=== PATIENT | male | born 1945 | race Caucasian/White ===

== ENCOUNTER 2017-11-25 11:38 | Emergency (ER) | payer MEDICARE, SELFPAY ==
[2017-11-25] VITALS (7 sets, daily range): BP systolic 97–156; BP diastolic 56–101; PULSE 54–69; RESP 16–18; TEMP 36.8; O2SAT 92–97; BMI 31.4
--- NOTE | 2017-11-25 | RAD_ITS ---
STUDY: X-RAY CHEST REASON FOR EXAM: Male, 72 years old. Chest pain and shortness of breath. TECHNIQUE: Single AP portable view of the chest. COMPARISON: Comparison is made with prior study dated August 19, 2015. FINDINGS: EKG electrodes are seen. Mild degree of vascular congestion and CHF. There is no demonstrated pleural abnormality. Sternal cerclage wires are present from a prior sternotomy. Atrial clip. Cardiomegaly. Normal mediastinum and ashley. Normal visualized pulmonary arteries. There is atherosclerotic calcification of the aortic arch with tortuosity. Normal visualized thoracic spine. Normal visualized ribs, clavicles, and shoulders. There is no demonstrated abnormality of the visualized soft tissue structures of the upper abdomen. RAD/Chest 1 View (Portable) IMPRESSION: Findings suggest a mild degree of CHF. Electronically Signed: Micah Rangel MD at 12:53 EDT Tel [phone], Service support ,
--- NOTE | 2017-11-25 12:20 | EKG12_ITS ---
Test Reason : SYNCOPE Blood Pressure : / mmHG Vent. Rate : 064 BPM Atrial Rate : 056 BPM P-R Int : 200 ms QRS Dur : 158 ms QT Int : 520 ms P-R-T Axes : 035 266 264 degrees QTc Int : 536 ms Sinus bradycardia with marked sinus arrhythmia Right bundle branch block Inferior infarct , age undetermined Abnormal ECG Confirmed by JULIANE BUSCH, LIV ([id number]), offline editor AR LANGLEY ([id number]) on 11/27/2017 1:41:55 PM Referred By: ANCA Confirmed By:LIV CARDOZO MD
--- NOTE | 2017-11-25 12:22 | EKG12_ITS ---
Test Reason : Blood Pressure : / mmHG Vent. Rate : 065 BPM Atrial Rate : 088 BPM P-R Int : 000 ms QRS Dur : 146 ms QT Int : 516 ms P-R-T Axes : 000 -82 137 degrees QTc Int : 536 ms Atrial fibrillation Left axis deviation Right bundle branch block Abnormal ECG Confirmed by JULIANE BUSCH, LIV ([id number]), writer editor AR LANGLEY ([id number]) on 11/27/2017 1:41:23 PM Referred By: JUANA Confirmed By:LIV CARDOZO MD
--- NOTE | 2017-11-25 12:23 | ED.VISSUMM ---
- ER Visit Summary Date of Service: 11/25/17 Chief Complaint: Shortness of breath History of Present Illness: The patient is a 72 M who presents for evaluation of shortness of breath that started this morning. Patient states he went to his daughter's house, and upon walking up the stairs to her house he became short of breath. He had another episode of shortness of breath while having a bowel movement and having to bear down. He became lightheaded and diaphoretic, but states he felt lightheaded and short of breath prior to having the bowel movement. He denies chest pain, fever, abdominal pain, nausea or vomiting, back pain. He has a history of quadruple bypass surgery, a valve repair, and he is scheduled to be evaluated at the [facility] tomorrow for evaluation of another leaky valve that will likely require surgery. Daughter states that patient has been having intermittent shortness of breath for a few months. He stopped his Xarelto and Metformin yesterday in anticipation of a cardiac catheterization this week. Patient is a former smoker. Denies any history of COPD, asthma, CHF. Physical Examination: Vital signs: afebrile, hemodynamically stable, 88-91% on room air, hypoxia on room air General: well nourished, well developed, in no distress Skin: warm, dry, no rash, no pallor HEENT: normocephalic and atraumatic; PERRL, EOMI, moist mucous membranes Cardiovascular: regular rate and rhythm with harsh systolic murmur best heard at the left sternal border, no peripheral edema, 2+ pulses all distal extremities Respiratory: No increased work of breathing, lungs are clear to auscultation bilaterally, no rales, rhonchi or wheezing Abdominal: Abdomen is soft, nontender with normoactive bowel sounds, no guarding or rebound, no masses MSK: Moves all extremities, no deformities, normal strength Neuro: Awake and alert, oriented ?4. No facial droop, sensation and motor function intact and symmetric Test Results: Abnormal Lab Results 11/25/17 11/25/17 11/25/17 12:50 12:50 12:50 WBC 18.7 H RBC 4.43 L Hgb 12.3 L Hct 39.3 L MCV 88.7 MCH 27.8 MCHC 31.3 L RDW 16.1 H RDW Differential 52.0 H Plt Count 214 MPV 9.7 Immature Gran % (Auto) 0.100 Neut % (Auto) 31.5 L Lymph % (Auto) 64.5 H [place] % (Auto) 3.2 Eos % (Auto) 0.5 Baso % (Auto) 0.2 Absolute Neuts (auto) 5.9 Absolute Lymphs (auto) 12.07 H Total Counted Not Reportable Diff Path Review May foll Smudge Cells 1+ H PT 16.0 H INR 1.3 APTT 39.5 H D-Dimer Quant (PE/DVT) 0.47 Sodium 141 Potassium 4.1 Chloride 107 Carbon Dioxide 28.0 Anion Gap 6 BUN 13 Creatinine 1.07 Estim Creat Clear Calc 65.38 Est GFR (MDRD) Af Amer 88 Est GFR (MDRD) Non-Af 72 BUN/Creatinine Ratio 12.1 Glucose 114 H Calcium 8.7 Troponin I 0.017 B-Natriuretic Peptide 11/25/17 12:50 WBC RBC Hgb Hct MCV MCH MCHC RDW RDW Differential Plt Count MPV Immature Gran % (Auto) Neut % (Auto) Lymph % (Auto) [place] % (Auto) Eos % (Auto) Baso % (Auto) Absolute Neuts (auto) Absolute Lymphs (auto) Total Counted Diff Path Review Smudge Cells PT INR APTT D-Dimer Quant (PE/DVT) Sodium Potassium Chloride Carbon Dioxide Anion Gap BUN Creatinine Estim Creat Clear Calc Est GFR (MDRD) Af Amer Est GFR (MDRD) Non-Af BUN/Creatinine Ratio Glucose Calcium Troponin I B-Natriuretic Peptide 381.1 H Clinical Impression(s) from Imaging Studies Chest X-Ray 11/25/17 00:00 IMPRESSION: Findings suggest a mild degree of CHF. Electronically Signed: Micah Rangel MD at 12:53 EDT Tel [phone], Service support , Emergency Department Course and Treatment: Patient presents with new onset shortness of breath, with upcoming surgical repair of leaky valve. Family unsure exactly which valve it was. Patient does have a harsh systolic murmur on evaluation. Patient hypoxic at presentation that improved with 2 L nasal cannula, with no history of oxygen requirement. Patient also recently stopped his Xarelto in anticipation of the procedures this week. Thus PE is on the differential. D-dimer was normal. Patient's EKG showed a sinus bradycardia with a right bundle branch block, ST depressions in the anterolateral leads, present on old EKG. Posterior EKG performed given the ST depressions in the anterolateral leads and showed no ST patient in the posterior leads. Troponin negative. Patient had a leukocytosis of 18.7, which upon further discussion the family states is chronic for the patient, as he has a history of leukemia and always has an elevation of his white count. Chest x-ray was consistent with CHF. BNP was elevated. Patient's symptoms were controlled with nasal cannula oxygen. Patient was not given any nitro or Lasix, as his valvular defect may depend upon adequate preload. Patient was discussed with [facility] cardiology, Dr. Saxena, juvenile court liaison for Dr. Gonzalez, regarding transfer of patient to the [facility] for further intervention, as his presentation today may be related to his underlying valvular disease. Patient was accepted for transfer for continuity of care and specialist management. Treatment Plan: [] Disposition: [] Impression: Acute CHF exacerbation, hypoxia, valvular disease This note was generated with Ro[employer] dictation software. It may contain incorrect words, spelling, and punctuation that were not noted in review of the chart prior to signing ED Disposition - Plan for ED Patient: Chief Complaint: Shortness of Breath Referrals: Momo Hutton MD [Primary Care Provider] -
--- NOTE | 2017-11-25 12:26 | ED.DCSUM_ITS ---
- ER Visit Summary Date of Service: 11/25/17 Chief Complaint: Shortness of breath History of Present Illness: The patient is a 72 M who presents for evaluation of shortness of breath that started this morning. Patient states he went to his daughter's house, and upon walking up the stairs to her house he became short of breath. He had another episode of shortness of breath while having a bowel movement and having to bear down. He became lightheaded and diaphoretic, but states he felt lightheaded and short of breath prior to having the bowel movement. He denies chest pain, fever, abdominal pain, nausea or vomiting, back pain. He has a history of quadruple bypass surgery, a valve repair, and he is scheduled to be evaluated at the [facility] tomorrow for evaluation of another leaky valve that will likely require surgery. Daughter states that patient has been having intermittent shortness of breath for a few months. He stopped his Xarelto and Metformin yesterday in anticipation of a cardiac catheterization this week. Patient is a former smoker. Denies any history of COPD, asthma, CHF. Physical Examination: Vital signs: afebrile, hemodynamically stable, 88-91% on room air, hypoxia on room air General: well nourished, well developed, in no distress Skin: warm, dry, no rash, no pallor HEENT: normocephalic and atraumatic; PERRL, EOMI, moist mucous membranes Cardiovascular: regular rate and rhythm with harsh systolic murmur best heard at the left sternal border, no peripheral edema, 2+ pulses all distal extremities Respiratory: No increased work of breathing, lungs are clear to auscultation bilaterally, no rales, rhonchi or wheezing Abdominal: Abdomen is soft, nontender with normoactive bowel sounds, no guarding or rebound, no masses MSK: Moves all extremities, no deformities, normal strength Neuro: Awake and alert, oriented ?4. No facial droop, sensation and motor function intact and symmetric Test Results: Abnormal Lab Results 11/25/17 11/25/17 11/25/17 12:50 12:50 12:50 WBC 18.7 H RBC 4.43 L Hgb 12.3 L Hct 39.3 L MCV 88.7 MCH 27.8 MCHC 31.3 L RDW 16.1 H RDW Differential 52.0 H Plt Count 214 MPV 9.7 Immature Gran % (Auto) 0.100 Neut % (Auto) 31.5 L Lymph % (Auto) 64.5 H [place] % (Auto) 3.2 Eos % (Auto) 0.5 Baso % (Auto) 0.2 Absolute Neuts (auto) 5.9 Absolute Lymphs (auto) 12.07 H Total Counted Not Reportable Diff Path Review May foll Smudge Cells 1+ H PT 16.0 H INR 1.3 APTT 39.5 H D-Dimer Quant (PE/DVT) 0.47 Sodium 141 Potassium 4.1 Chloride 107 Carbon Dioxide 28.0 Anion Gap 6 BUN 13 Creatinine 1.07 Estim Creat Clear Calc 65.38 Est GFR (MDRD) Af Amer 88 Est GFR (MDRD) Non-Af 72 BUN/Creatinine Ratio 12.1 Glucose 114 H Calcium 8.7 Troponin I 0.017 B-Natriuretic Peptide 11/25/17 12:50 WBC RBC Hgb Hct MCV MCH MCHC RDW RDW Differential Plt Count MPV Immature Gran % (Auto) Neut % (Auto) Lymph % (Auto) [place] % (Auto) Eos % (Auto) Baso % (Auto) Absolute Neuts (auto) Absolute Lymphs (auto) Total Counted Diff Path Review Smudge Cells PT INR APTT D-Dimer Quant (PE/DVT) Sodium Potassium Chloride Carbon Dioxide Anion Gap BUN Creatinine Estim Creat Clear Calc Est GFR (MDRD) Af Amer Est GFR (MDRD) Non-Af BUN/Creatinine Ratio Glucose Calcium Troponin I B-Natriuretic Peptide 381.1 H Clinical Impression(s) from Imaging Studies Chest X-Ray 11/25/17 00:00 IMPRESSION: Findings suggest a mild degree of CHF. Electronically Signed: Micah Rangel MD at 12:53 EDT Tel [phone], Service support , Emergency Department Course and Treatment: Patient presents with new onset shortness of breath, with upcoming surgical repair of leaky valve. Family unsure exactly which valve it was. Patient does have a harsh systolic murmur on evaluation. Patient hypoxic at presentation that improved with 2 L nasal cannula, with no history of oxygen requirement. Patient also recently stopped his Xarelto in anticipation of the procedures this week. Thus PE is on the differential. D-dimer was normal. Patient's EKG showed a sinus bradycardia with a right bundle branch block, ST depressions in the anterolateral leads, present on old EKG. Posterior EKG performed given the ST depressions in the anterolateral leads and showed no ST patient in the posterior leads. Troponin negative. Patient had a leukocytosis of 18.7, which upon further discussion the family states is chronic for the patient, as he has a history of leukemia and always has an elevation of his white count. Chest x-ray was consistent with CHF. BNP was elevated. Patient's symptoms were controlled with nasal cannula oxygen. Patient was not given any nitro or Lasix, as his valvular defect may depend upon adequate preload. Patient was discussed with [facility] cardiology, Dr. Saxena, sponge hooker for Dr. Gonzalez, regarding transfer of patient to the [facility] for further intervention, as his presentation today may be related to his underlying valvular disease. Patient was accepted for transfer for continuity of care and specialist management. Treatment Plan: [] Disposition: [] Impression: Acute CHF exacerbation, hypoxia, valvular disease This note was generated with [employer] dictation software. It may contain incorrect words, spelling, and punctuation that were not noted in review of the chart prior to signing ED Disposition - Plan for ED Patient: Chief Complaint: Shortness of Breath Referrals: Momo Hutton MD [Primary Care Provider] -
[2017-11-25] MEDS: Aspirin 81 MG TAB.CHEW 324 MG PO (12:40)
[2017-11-25] MEDS: 0.9% Normal Saline 1,000 ML 250 ML IV (12:48)
[2017-11-25 13:04] LABS: Absolute Lymphocyte Count 12.07 X10^3/ul (0.83-4.51); Absolute Neutrophil Count 5.9 X10^3/uL (2.0-7.7); Basophil# 0.03 X10^3/uL; Basophil% 0.2 % (0-1); Eosinophil# 0.09 X10^3/uL; Eosinophils% 0.5 % (0-5); Hematocrit 39.3 % (40-54); Hemoglobin 12.3 g/dl (13.0-16.5); Lymphocyte # 12.07 X10^3/ul (4.0); Lymphocyte % 64.5 % (19-41); Mean Corp Hgb Conc 31.3 g/gl (32-36); Mean Corpuscular Hgb 27.8 pg (27.0-32.0); Mean Corpuscular Volume 88.7 fL (80-94); Mean Platelet Vol. 9.7 fl (6.2-12.0); Monocyte% 3.2 % (0-10); Neutrophil # 5.89 X10^3/uL (2.7-7.7); Neutrophil % 31.5 % (47-70); Platelet Count 214 K/mm3 (150-450); RBC Distribution Width CV 16.1 % (11.6-14.6); Red Blood Count 4.43 M/mm3 (4.6-6.2); White Blood Count 18.7 K/mm3 (4.4-11.0)
[2017-11-25 13:05] LABS: Differential Indicated SCAN CRITERIA MET; POSITIVE COUNT NO; POSITIVE DIFFERENTIAL YES; POSITIVE MORPHOLOGY NO
[2017-11-25 13:07] LABS: International Normalized Ratio 1.3
[2017-11-25 13:08] LABS: Partial Thromboplast Time 39.5 Seconds (24.1-36.2)
[2017-11-25 13:10] LABS: D-Dimer Quantitative (DVT/PE) 0.47 FEU/ug/m (0.27-0.49)
[2017-11-25 13:16] LABS: Anion Gap 6 (5-15); BUN 13 mg/dL (7-18); BUN/Creat Ratio 12.1 RATIO (10-20); Calcium,Total 8.7 mg/dL (8.5-10.1); Chloride 107 mmol/L (98-107); Creatinine, Serum 1.07 mg/dL (0.70-1.30); EST Glomerular Filtration Rate 72 mL/min (>60); Est Glom Filt Rate - Afr Amer 88 mL/min (>60); Estimated Creatinine Clearance 65.38 ml/min; Glucose 114 mg/dL (74-106); Potassium 4.1 mmol/L (3.5-5.1); Sodium Level 141 mmol/L (136-145)
[2017-11-25 13:26] LABS: Smudge Cells 1+
[2017-11-25 13:29] LABS: BNP,B-Type NATRIURETIC PEPTIDE 381.1 pg/mL (0-100)
[2017-11-25 16:13] LABS: Pathologist Review Reviewed
--- NOTE | 2017-11-25 19:19 | NURSING ---
[facility] MAIN ACCEPTED BY DR. HAND [id number] [facility] 23 REPORT
== END 2017-11-25 20:24 | disposition short-term general hospital (02) ==
PROVIDERS: Emergency Provider Emergency Medicine; Family Provider Family Medicine; PCP Family Medicine
DX: I50.9 Heart failure, unspecified (principal); R09.02 Hypoxemia; I38 Endocarditis, valve unspecified; I25.10 Atherosclerotic heart disease of native coronary artery without angina pectoris; I25.2 Old myocardial infarction; Z95.1 Presence of aortocoronary bypass graft; Z87.891 Personal history of nicotine dependence; Z79.02 Long term (current) use of antithrombotics/antiplatelets; Z79.82 Long term (current) use of aspirin; Z79.84 Long term (current) use of oral hypoglycemic drugs; Z79.899 Other long term (current) drug therapy
CPT/HCPCS: 71045; 80048; 83880; 84484; 85025; 85379; 85610; 85730; 93005; 96360; 96361; 99285; J7030